=== PATIENT | male | born 1970 | race Caucasian/White ===

== ENCOUNTER 2016-06-22 09:39 | Outpatient (CLI) | payer OTHER ==
[2016-06-22 10:05] LABS: BASOPHILS % 0.4 (0.0-1.5); EOSINOPHILS % 3.9 % (0.0-6.8); LYMPHOCYTES # 1.3 # k/uL (0.6-4.0); MONOCYTES # 0.3 # k/uL (0.0-0.9); MONOCYTES % 4.5 % (0.0-11.0); NEUTROPHILS # 4.2 # k/uL (1.4-7.7)
[2016-06-22 10:29] LABS: eGFR (African) > 60; eGFR (Non-African) > 60
--- NOTE | 2016-06-22 11:00 | Diagnostic Imaging Report ---
ALEXX ERNST [facility] [address] [facility] [address] [address] Report Submission Date: Jun 22, 2016 10:44:00 AM TRAVELING CRANE OPERATOR Patient Study Name: RADHA GALVEZ Date: Jun 22, 2016 9:54:38 AM TRAVELING CRANE OPERATOR Modality Type: CR Gender: M Description: UPPER EXTREMITY : 72 Institution: [facility] Physician: ALEXX ERNST Right hand - three views Clinical history: Pain. Arthralgias. Findings: Examination right hand in palmar, lateral and oblique views demonstrates deformity of the fifth metacarpal consistent with an old healed fracture. There are degenerative changes in the interphalangeal joints of the fifth digit. There is no evident fracture and no lytic or blastic lesion. Impression: 1. Remote post-traumatic changes of the fifth metacarpal. 2. Degenerative changes in the fifth digit likely related to prior trauma. Electronically signed on Jun 22, 2016 10:44:00 AM TRAVELING CRANE OPERATOR by: Eddie HOUSE
== END 2016-06-22 09:40 ==
LOC: LAB 09:39
PROVIDERS: ATTEND Physician Assistant
DX: M25.541 Pain in joints of right hand (principal)
CPT/HCPCS: 36415; 73130; 80053; 85025; 85651; 86038; 86140; 86431

== ENCOUNTER 2016-12-22 16:20 | Outpatient (CLI) | payer BC, OTHER ==
--- NOTE | 2016-12-22 19:23 | Diagnostic Imaging Report ---
ALEXX ERNST [facility] [address] [facility] [address] Report Submission Date: Dec 22, 2016 4:41:29 PM CDT Patient Study Name: RADHA GALVEZ Date: Dec 22, 2016 4:21:55 PM CDT Modality Type: CR Gender: M Description: UPPER EXTREMITY : 72 Institution: [facility] Physician: ALEXX ERNST Examination: Plain film wrist History: Wrist discomfort Comparison exams: None available Findings: 3 views the wrist demonstrate normal cortical margins. No fracture. No dislocation. Base of the 1st digit without acute osseous abnormality. No soft tissue abnormality. Impression: No acute osseous abnormality Electronically signed on Dec 22, 2016 4:41:29 PM CDT by: Braden HOUSE
== END 2016-12-22 16:21 ==
LOC: RAD 16:20
PROVIDERS: ATTEND Physician Assistant
DX: M25.532 Pain in left wrist (principal)
CPT/HCPCS: 73110